=== PATIENT | female | born 1945 | race Two or more races ===

== ENCOUNTER → 2017-01-10 | Outpatient (CLI) | payer MEDICARE, MEDICAID ==
[~2017-01-10] MED LIST: AMLO5TAB2 PO; ASPI-231 PO; ATOR40TA52 PO; BENA40TA7 PO; SOTA80TA PO
== END | disposition home or self-care (01) ==
LOC: Rad HDHVI 14:33
PROVIDERS: ATTEND Internal Medicine Cardiovascular Disease
DX: I08.0 Rheumatic disorders of both mitral and aortic valves (principal); R06.02 Shortness of breath
CPT/HCPCS: 93306

== ENCOUNTER → 2017-01-14 | Outpatient (CLI) | payer MEDICARE, MEDICAID ==
[~2017-01-14] MED LIST changes: +ADENOSINE 58 MG in GIVE UN-DILUTED 0 ML IV ONE; +ADENOSINE 90 MG/30 ML INJ IV ONE
== END | disposition home or self-care (01) ==
LOC: Rad HDHVI 13:05
PROVIDERS: ATTEND Internal Medicine Cardiovascular Disease
DX: I10 Essential (primary) hypertension (principal); E78.00 Pure hypercholesterolemia, unspecified; I25.119 Atherosclerotic heart disease of native coronary artery with unspecified angina pectoris
CPT/HCPCS: 78452; 93005; 96374; 96375; A9500; J0153

== ENCOUNTER → 2017-11-18 | Outpatient (CLI) | payer MEDICARE, MEDICAID ==
[~2017-11-18] MED LIST changes: -ADENOSINE 58 MG in GIVE UN-DILUTED 0 ML IV ONE; -ADENOSINE 90 MG/30 ML INJ IV ONE; +ALPR0.254 PO; +AMLO5TAB13 PO; -AMLO5TAB2 PO; +CLOP75TA41 PO; +ISOS30TA4 PO; +NITR0.4S29 SL; +PANT40T PO; +RANO500T2 PO
== END | disposition home or self-care (01) ==
LOC: Rad HDHVI 15:34
PROVIDERS: ATTEND Internal Medicine Cardiovascular Disease
DX: I08.3 Combined rheumatic disorders of mitral, aortic and tricuspid valves (principal); I20.0 Unstable angina; R06.02 Shortness of breath
CPT/HCPCS: 93306

== ENCOUNTER → 2017-12-01 | Outpatient (CLI) | payer MEDICARE, MEDICAID ==
[2017-12-01 10:00] VITALS: BP 127/67
[2017-12-01 10:25] VITALS: BP 128/71
[2017-12-01 12:08] LABS: Basophils # (auto) 0.1 uL; Basophils % (auto) 0.9 % (0.0-2.0); Eosinophils # (auto) 0.2 uL; Eosinophils % (auto) 2.9 % (0.0-7.0); Hematocrit 38.2 % (36.0-46.0); Hemoglobin 12.6 g/dL (12.2-16.2); Lymphocytes # (auto) 2.8 uL; Mean Corpuscular Hemoglobin 30.4 pg (28.0-32.0); Monocytes # (auto) 0.4 uL; Monocytes % (auto) 6.2 % (0.0-12.0); Neutrophils # (auto) 3.5 uL; Nucleated Red Blood Cells % 0.4 %; Platelet Count (auto) 164 10^3/uL (140-450); Red Blood Cells 4.15 10^6/uL (4.0-5.20); Red Cell Distribution Width 13.3 % (11.8-14.3)
[2017-12-01 12:13] LABS: BUN/Creatinine Ratio 20.2; Calcium 10.4 mg/dL (8.5-10.1); Potassium 4.2 mmol/L (3.5-5.1)
[2017-12-01 12:14] LABS: Partial Thromboplastin Time 26.4 sec (23.78-33.04); Prothrombin Time 10.7 sec (9.27-12.13)
== END | disposition home or self-care (01) ==
LOC: Rad HDHVI 09:51
PROVIDERS: ATTEND Internal Medicine Cardiovascular Disease
DX: Z01.812 Encounter for preprocedural laboratory examination (principal); I10 Essential (primary) hypertension; D64.9 Anemia, unspecified; R79.1 Abnormal coagulation profile; I20.0 Unstable angina
CPT/HCPCS: 36415; 80048; 85025; 85610; 85730; 93005; G0463

== ENCOUNTER 2017-12-04 09:20 | Day surgery (SDC) | payer MEDICARE, MEDICAID ==
[~2017-12-04] VITALS: Ht 160 cm; Wt 69.4 kg
[2017-12-04] MEDS ORDERED: LIDOCAINE 2% (LOCAL ANESTH.) PF 5ml SDV ONE (11:06)
[2017-12-04] MEDS ORDERED: IOHEXOL 350 MG/ML 100ML IJ ONE (11:06)
[2017-12-04] MEDS ORDERED: ANGIOMAX 250 MG VIAL IV ONE (11:10)
[2017-12-04] MEDS ORDERED: SODIUM CHL 0.9% 0 ML ONE (11:11)
[2017-12-04] MEDS ORDERED: MIDAZOLAM HCL 1MG/1ML-2 ML VIAL ONE (11:11)
[2017-12-04] MEDS ORDERED: fentaNYL CITRATE 100 MCG/2 ML VL ONE (11:11)
== END 2017-12-04 14:30 | disposition home or self-care (01) ==
LOC: CATH 09:20
PROVIDERS: ATTEND Internal Medicine Cardiovascular Disease
DX: I25.119 Atherosclerotic heart disease of native coronary artery with unspecified angina pectoris (principal); Z95.5 Presence of coronary angioplasty implant and graft; R94.39 Abnormal result of other cardiovascular function study; I10 Essential (primary) hypertension; E11.9 Type 2 diabetes mellitus without complications; E78.5 Hyperlipidemia, unspecified; Z79.82 Long term (current) use of aspirin; Z79.899 Other long term (current) drug therapy
CPT/HCPCS: 93458; 99152; 99153; A6257; C1760; C1894; J1644; J2001; J2250; J3010; J7030; Q9967

== ENCOUNTER → 2018-04-21 | Outpatient (CLI) | payer MEDICARE, MEDICAID ==
[~2018-04-21] VITALS: Ht 160 cm; Wt 68.5 kg
[~2018-04-21] MED LIST changes: +ACETAMINOPHEN 500 MG TAB PO ONE; +ADENOSINE 58 MG in GIVE UN-DILUTED 0 ML IV ONE; +ADENOSINE 90 MG/30 ML INJ IV ONE
== END | disposition home or self-care (01) ==
LOC: Rad HDHVI 14:21
PROVIDERS: ATTEND Internal Medicine Cardiovascular Disease
DX: I08.3 Combined rheumatic disorders of mitral, aortic and tricuspid valves (principal); I11.0 Hypertensive heart disease with heart failure; I50.33 Acute on chronic diastolic (congestive) heart failure; I48.0 Paroxysmal atrial fibrillation; I20.0 Unstable angina; E78.00 Pure hypercholesterolemia, unspecified
CPT/HCPCS: 78452; 93005; 93306; 96374; 96375; A9500; J0153

== ENCOUNTER → 2018-09-25 | Outpatient (CLI) | payer MEDICARE, MEDICAID ==
[~2018-09-25] MED LIST changes: -ACETAMINOPHEN 500 MG TAB PO ONE; -ADENOSINE 58 MG in GIVE UN-DILUTED 0 ML IV ONE; -ADENOSINE 90 MG/30 ML INJ IV ONE; -AMLO5TAB13 PO; +AMLO5TAB15 PO; +READI-CAT 2 (BARIUM SULF)(VANILLA SMOOTHIE) 450ML ONE
== END | disposition home or self-care (01) ==
LOC: Rad HDHVI 09:17
PROVIDERS: ATTEND Internal Medicine Cardiovascular Disease
DX: I08.0 Rheumatic disorders of both mitral and aortic valves (principal); I25.10 Atherosclerotic heart disease of native coronary artery without angina pectoris; I11.0 Hypertensive heart disease with heart failure; I50.43 Acute on chronic combined systolic (congestive) and diastolic (congestive) heart failure
CPT/HCPCS: 74176; 93306

== ENCOUNTER → 2018-10-06 | Outpatient (CLI) | payer MEDICARE, MEDICAID ==
[~2018-10-06] VITALS: Ht 160 cm; Wt 66.7 kg
[~2018-10-06] MED LIST changes: +ACETAMINOPHEN 500 MG TAB PO ONE; +ADENOSINE 56 MG in GIVE UN-DILUTED 0 ML IV ONE; +ADENOSINE 90 MG/30 ML INJ IV ONE; -READI-CAT 2 (BARIUM SULF)(VANILLA SMOOTHIE) 450ML ONE
== END | disposition home or self-care (01) ==
LOC: Rad HDHVI 13:17
PROVIDERS: ATTEND Internal Medicine Cardiovascular Disease
DX: R07.9 Chest pain, unspecified (principal); I10 Essential (primary) hypertension; E78.00 Pure hypercholesterolemia, unspecified; R53.83 Other fatigue
CPT/HCPCS: 78452; 93005; 96374; 96375; A9500; J0153

== ENCOUNTER 2018-12-07 15:15 | Inpatient (IN) | payer MEDICARE, MEDICAID ==
[~2018-12-07] VITALS: Ht 157.5 cm; Wt 70.8 kg
[~2018-12-07 15:15] MED LIST changes: -ACETAMINOPHEN 500 MG TAB PO ONE; -ADENOSINE 56 MG in GIVE UN-DILUTED 0 ML IV ONE; -ADENOSINE 90 MG/30 ML INJ IV ONE
[2018-12-07 16:00] VITALS: BP 124/80
--- NOTE | 2018-12-07 16:00 | NUR ---
PATIENT ARRIVED ON FLOOR. PATIENT RESTING IN CHAIR. A&OX4. NO S/S OF DISTRESS NOTED AT THIS TIME. DENIES ANY PAIN. PATIENT ORIENTED TO [facility]. ORIENTED TO HOSPITAL ROOM INCLUDING CALL LIGHT AND BED. PATIENT UPDATED ON POC. ALL QUESTIONS ANSWERED. BED IN LOWEST LOCKED POSITION WITH CALL LIGHT WITHIN REACH. WILL CONTINUE CARE.
[2018-12-07 16:35] VITALS: BP 124/80
--- NOTE | 2018-12-07 16:45 | NUR ---
Ramona ERWIN STATED PATIENT "CLEARED FOR SURGERY".
--- NOTE | 2018-12-07 16:45 | NUR ---
SPOKE TO Ramona ERWIN. RECEIVED ORDERS. RYAN. WILL FOLLOW THROUGH AND CONTINUE CARE.
[2018-12-07] MEDS ORDERED: BENA40TA7 PO (17:17)
--- NOTE | 2018-12-07 17:20 | NUR ---
IV insertion IV access obtained, via clean sterile technique by inserting 20 gauge catheter at L HAND after 1 attempt(s). IV secured properly. No trauma to site. Patient tolerated well. NOTE:
[2018-12-07] MEDS ORDERED: ALPRAZolam 0.25 MG TAB PO PRN (18:00)
--- NOTE | 2018-12-07 19:00 | NUR ---
ENDORSED CARE TO RN REESE. PATIENT IN NO S/S OF DISTRESS AT THIS TIME.
[2018-12-07 19:33] LABS: Basophils # (auto) 0.1 uL; Basophils % (auto) 0.6 % (0.0-2.0); Eosinophils # (auto) 0.2 uL; Eosinophils % (auto) 2.1 % (0.0-7.0); Hematocrit 41.3 % (36.0-46.0); Hemoglobin 14.1 g/dL (12.2-16.2); Lymphocytes % (auto) 43.9 % (10.0-50.0); Mean Corpuscular Hemoglobin 31.5 pg (28.0-32.0); Mean Corpuscular Volume 92.6 fL (80.0-100.0); Monocytes # (auto) 0.5 uL; Monocytes % (auto) 5.5 % (0.0-12.0); Neutrophils # (auto) 4.4 uL; Neutrophils % (auto) 47.9 % (37.0-80.0); Nucleated Red Blood Cells % 0.1 %; Platelet Count (auto) 179 10^3/uL (140-450); Red Blood Cells 4.46 10^6/uL (4.0-5.20); Red Cell Distribution Width 13.8 % (11.8-14.3); White Blood Cell 9.1 10^3/uL (4.4-10.8)
--- NOTE | 2018-12-07 20:00 | NUR ---
Opening Shift Note Assumed care of patient, awake and alert. No S/S of distress/SOB or pain. Instructed on POC and to call for assist PRN, will continue to monitor for changes Q1hr and PRN.Daughter at bedside.
[2018-12-07 20:03] LABS: BUN/Creatinine Ratio 21.3; Calcium 10.7 mg/dL (8.5-10.1); Potassium 3.9 mmol/L (3.5-5.1)
[2018-12-07] MEDS: ATORVASTATIN 20 MG TAB PO SCH (21:42)
[2018-12-07 22:00] VITALS: BP 114/71
[2018-12-08 05:00] VITALS: BP 122/70
--- NOTE | 2018-12-08 07:15 | NUR ---
Report given to becky Self, patient is resting no distress.
--- NOTE | 2018-12-08 08:05 | NUR ---
OPENING SHIFT NOTE ASSUMED CARE OF PATIENT. PATIENT ALERT AND AWAKE IN BED. NO SIGNS OF SOB OR DISTRESS. INSTRUCTED OF POC AND TO CALL FOR ASSISTANCE PRN. BED IN LOWEST POSITION. SIDE RAILS UP X2. WILL CONTINUE TO MONITOR.
[2018-12-08 09:00] VITALS: BP 122/79
[2018-12-08] MEDS: amLODIPine BESYLATE 5 MG TAB PO SCH (09:59)
[2018-12-08] MEDS: ASPirin 81 mg TAB PO SCH (10:00)
[2018-12-08] MEDS: BENAZEPRIL HCL 10 MG TAB PO SCH (10:00)
[2018-12-08 10:09] LABS: INR 1.07 (0.9-1.15); Partial Thromboplastin Time 27.3 sec (23.64-32.05)
[2018-12-08 10:13] LABS: Bilirubin, Total 1.2 mg/dL (0.2-1.0)
[2018-12-08 13:00] VITALS: BP 125/70
--- NOTE | 2018-12-08 15:57 | NUR ---
PAGED DR WILLIS REGARDING CONSULT. AWAITING CALLBACK.
[2018-12-08] MEDS: AMIODARONE HCL 200 MG TAB PO SCH (16:36)
[2018-12-08] MEDS: ISOSORBIDE MONONITRATE ER 60 MG TAB PO SCH (16:37)
[2018-12-08 17:00] VITALS: BP 118/89
--- NOTE | 2018-12-08 20:00 | NUR ---
Opening Shift Note Assumed care of patient, awake and alert. No S/S of distress/SOB or pain. Instructed on POC and to call for assist PRN, will continue to monitor for changes Q1hr and PRN.Advised no food or drink after midnight.
[2018-12-08] MEDS: HYDROcodone-ACET 5/325MG TAB PO PRN (20:54)
[2018-12-08] MEDS: ATORVASTATIN 20 MG TAB PO SCH (21:24)
[2018-12-08 21:49] VITALS: BP 132/78
[2018-12-09 04:11] LABS: Urine Amorphous Crystal FEW /hpf (None Seen); Urine Bacteria FEW /hpf (None Seen); Urine Blood Negative /uL (Negative); Urine Hyaline Cast MANY /lpf (0 - 2); Urine Mucus MANY (None Seen); Urine Specific Gravity 1.031 (1.001-1.035); Urine WBC 12 /hpf (0 - 5)
[2018-12-09 05:57] VITALS: BP 104/69
--- NOTE | 2018-12-09 06:45 | NUR ---
Send the patient to pre-op room and gave report to Shane Mcguire and told the patient has no consent yet, no order for surgery and still to be seen by Dr. Juan, and patient want to talk to her daughter before she goes under surgery .
[2018-12-09] MEDS ORDERED: ceFAZolin 1GM/50ML 50 ML IV ONE (07:04)
--- NOTE | 2018-12-09 07:20 | NUR ---
Report given to Shane Shin, patient is resting no distress.
[2018-12-09] MEDS ORDERED: SUCCINYLCHOLINE CHLORIDE 20 MG/ML 10ML VIAL IV ONE (08:20)
[2018-12-09] MEDS ORDERED: DOXAPRAM HCL 20 MG/ML 20ML VIAL INJ IV ONE (08:20)
[2018-12-09] MEDS ORDERED: ROCURONIUM 10MG/ML 10ML VIAL IV ONE (08:29)
[2018-12-09] MEDS ORDERED: NEOSTIGMINE 1 MG/ML INJ (10mg/10ML VIAL) ONE ×2 (08:29→09:58)
[2018-12-09] MEDS ORDERED: MIDAZOLAM HCL 1MG/1ML-2 ML VIAL ONE (08:29)
[2018-12-09] MEDS ORDERED: GLYCOPYRROLATE 0.2 MG/ML 1ML VIAL ONE ×2 (08:29→09:58)
[2018-12-09] MEDS ORDERED: SODIUM CHLORIDE LOCK 10 ML ONE (08:29)
[2018-12-09] MEDS ORDERED: ETOMIDATE (2MG/ML) 20ML VIAL IV ONE (08:29)
[2018-12-09] MEDS ORDERED: fentaNYL CITRATE 100 MCG/2 ML VL ONE (08:29)
[2018-12-09] MEDS ORDERED: MORPHINE SULFATE INJECTION 1 ML ONE (08:29)
[2018-12-09] MEDS ORDERED: ONDANSETRON HCL 4 MG/2 ML VIAL ONE (08:29)
[2018-12-09] MEDS: ASPirin 81 mg TAB PO SCH (10:00)
--- NOTE | 2018-12-09 11:06 | NUR ---
Nutrition Assessment Notes please see attached link for complete assessment Est. Needs BW (71 kg): 0348-3534 kcal (23-25kcal/kgBW), 71-78 gms pro (1.0-1.1 gms/kgBW). Will continue to monitor pertinent labs and reassess nutrient need prn Addendum: 12/09/18 at [address] Amended: Links added.
[2018-12-09] MEDS: AMIODARONE HCL 200 MG TAB PO SCH (11:11)
[2018-12-09] MEDS: ISOSORBIDE MONONITRATE ER 60 MG TAB PO SCH (11:12)
[2018-12-09] MEDS: BENAZEPRIL HCL 10 MG TAB PO SCH (11:12)
[2018-12-09] MEDS: amLODIPine BESYLATE 5 MG TAB PO SCH (11:13)
[2018-12-09] MEDS: HYDROcodone-ACET 5/325MG TAB PO PRN (11:23)
[2018-12-09 13:00] VITALS: BP 124/69
--- NOTE | 2018-12-09 14:07 | NUR ---
Dr. Rowe paged regarding last BM 12/03, awaiting to call back.
--- NOTE | 2018-12-09 14:26 | NUR ---
Received a call from Dr. Rowe with new orders, noted and carried it out.
[2018-12-09] MEDS: LACTULOSE 20Gm/30ML SOLN PO PRN ×2 (15:28→22:39)
[2018-12-09 16:58] VITALS: BP 111/72
--- NOTE | 2018-12-09 19:35 | NUR ---
Opening Shift Note Assumed care of patient, awake and alert. No S/S of distress/SOB or pain. Instructed on POC and to call for assist PRN, will continue to monitor for changes Q1hr and PRN.
[2018-12-09] MEDS: ATORVASTATIN 20 MG TAB PO SCH (22:39)
[2018-12-09 23:04] VITALS: BP 100/53
[2018-12-10] MEDS: HYDROcodone-ACET 5/325MG TAB PO PRN (05:24)
[2018-12-10 05:41] VITALS: BP 128/90
[2018-12-10 09:00] VITALS: BP 114/69
[2018-12-10] MEDS: ASPirin 81 mg TAB PO SCH (09:50)
[2018-12-10] MEDS: BENAZEPRIL HCL 10 MG TAB PO SCH (09:51)
[2018-12-10] MEDS: ISOSORBIDE MONONITRATE ER 60 MG TAB PO SCH (09:51)
[2018-12-10] MEDS: amLODIPine BESYLATE 5 MG TAB PO SCH (09:51)
[2018-12-10] MEDS: AMIODARONE HCL 200 MG TAB PO SCH (09:51)
[2018-12-10 13:00] VITALS: BP 112/67
[2018-12-10 14:16] VITALS: BP 112/67
--- NOTE | 2018-12-10 15:57 | NUR ---
D/C Planning Per consult for wound care, physical therapy, wound care motoring TO [facility]. Information and choice was given to Pt at bedside. Pt first choice was [facility] and Second choice was [facility]. Pt stated she will be staying with her brother Atif Ph:) in [facility]. Pt verbalize understanding d/c plan. Contacted [facility] Ph:) spoke to Marcos. Per Marcos from [facility] advised me they do not cover [place] area. Contacted [facility]:) Fax:) faxed medical records. Zena from [facility] advised me they cover [place] area and Pt has been accepted and will be seen within 48hrs upon d/c day. Provided Zena from [facility] Pt brother Atif address [address] [place] [id number]. Informed Pt at bedside of home health acceptance. Informed [facility] Momin. Addendum: 12/10/18 at 1614 by MAYCO KYES Amended: Links added.
--- NOTE | 2018-12-10 15:59 | NUR ---
Per Dandre (KEMI) patient will go home with [facility] . Patient notified.
[2018-12-10 17:00] VITALS: BP 111/55
--- NOTE | 2018-12-10 17:35 | NUR ---
Discharge instructions given as ordered. Encourage to follow up with PMD (Follow up with Dr. Juan in 7-10 DAYS Address : [address] [place] [address] Rd, , [place], [id number] [phone] Ext : [phone]. FOLLOW UP WITH DR ERWIN WITHIN 1 WEEK (CALL AND SCHEDULE APPOINTMENT) [address] [place] [address]. FOLLOW UP WITH [facility] )as instructed. All questions and concerns addressed. Patient verbalized understanding. Medication reconciliation form completed and copy given to patient. IV removed with catheter intact, pressure dressing applied. Patient taken to vehicle via wheelchair with all personal belongings, accompanied by staff and family member. No distress noted at time of departure.
== END 2018-12-10 17:35 | disposition home health service (06) | DRG 418 ==
LOC: WEST WING 15:42
PROVIDERS: ADMIT Internal Medicine Cardiovascular Disease; ATTEND Internal Medicine Cardiovascular Disease
PROC: 0FT44ZZ Resection of Gallbladder, Percutaneous Endoscopic Approach (ICD-10-PCS; principal; 2018-12-09 09:25)
DX: K80.12 Calculus of gallbladder with acute and chronic cholecystitis without obstruction (principal); D68.59 Other primary thrombophilia; I25.10 Atherosclerotic heart disease of native coronary artery without angina pectoris; I10 Essential (primary) hypertension; E78.5 Hyperlipidemia, unspecified; I48.0 Paroxysmal atrial fibrillation; Z95.5 Presence of coronary angioplasty implant and graft; F32.9 Major depressive disorder, single episode, unspecified; F41.9 Anxiety disorder, unspecified
CPT/HCPCS: 36415; 71045; 76705; 80048; 81001; 82150; 82247; 85025; 85610; 85730; 86850; 86900; 86901; 93005; G0378; J0330; J0690; J2250; J2405

== ENCOUNTER → 2019-04-28 | Outpatient (CLI) | payer MEDICARE, MEDICAID ==
[~2019-04-28] MED LIST changes: -CLOP75TA41 PO; -PANT40T PO; +READI-CAT 2 (BARIUM SULF)(VANILLA SMOOTHIE) 450ML ONE; -SOTA80TA PO
[2019-04-28 16:02] LABS: Basophils # (auto) 0.1 uL; Basophils % (auto) 0.7 % (0.0-2.0); Eosinophils # (auto) 0.1 uL; Eosinophils % (auto) 1.8 % (0.0-7.0); Hematocrit 38.2 % (36.0-46.0); Hemoglobin 12.7 g/dL (12.2-16.2); Lymphocytes % (auto) 39.7 % (10.0-50.0); Mean Corpuscular Hemoglobin 30.9 pg (28.0-32.0); Mean Corpuscular Hgb Conc. 33.3 g/dL (32.0-36.0); Monocytes # (auto) 0.5 uL; Monocytes % (auto) 5.9 % (0.0-12.0); Neutrophils # (auto) 3.9 uL; Neutrophils % (auto) 51.9 % (37.0-80.0); Nucleated Red Blood Cells % 0.1 %; Platelet Count (auto) 183 10^3/uL (140-450); Red Blood Cells 4.11 10^6/uL (4.0-5.20); Red Cell Distribution Width 13.5 % (11.8-14.3); White Blood Cell 7.6 10^3/uL (4.4-10.8)
[2019-04-28 16:17] LABS: Urine Blood Negative /uL (Negative); Urine Specific Gravity 1.019 (1.001-1.035)
[2019-04-28 16:23] LABS: Albumin 3.7 g/dL (3.4-5.0); Calcium 11.4 mg/dL (8.5-10.1); Potassium 4.1 mmol/L (3.5-5.1)
[2019-04-28 16:27] LABS: Bilirubin, Direct 0.1 mg/dL (0-0.2); Bilirubin, Total 0.5 mg/dL (0.2-1.0); Total Protein 7.1 g/dL (6.4-8.2)
[2019-04-28 16:50] LABS: BUN/Creatinine Ratio 18.9
== END | disposition home or self-care (01) ==
LOC: Rad HDHVI 14:49
PROVIDERS: ATTEND Internal Medicine Cardiovascular Disease
DX: E03.9 Hypothyroidism, unspecified (principal); N39.0 Urinary tract infection, site not specified; R10.9 Unspecified abdominal pain; K59.00 Constipation, unspecified; Z79.899 Other long term (current) drug therapy
CPT/HCPCS: 36415; 80048; 80061; 80076; 81003; 82306; 83036; 84443; 85025; 87086

== ENCOUNTER → 2019-12-31 | Outpatient (CLI) | payer MEDICARE, MEDICAID ==
[~2019-12-31] MED LIST changes: +AMIO400T7 PO; -READI-CAT 2 (BARIUM SULF)(VANILLA SMOOTHIE) 450ML ONE; +RIVA20TA PO; +TRAM50TA2 PO
--- NOTE | 2019-12-31 11:07 | NUR ---
PT. TO CLINIC FOR COMPLETION OF PRE-OP DIAGNOSTICS FOR LHC ON 01/05 AT [facility]. LOUANN BALLARD. JASMIAN WITH PT. FOR SUPPORT. PT. WITH NO C/O. LABS AND CXR HAVE BEEN COMPLETED.
--- NOTE | 2019-12-31 11:12 | NUR ---
PRE OP EKG DONE SHOWING CHRONIC A-FIB WITH CONTROLLED VENT. RESPONSE AT 97
--- NOTE | 2019-12-31 11:22 | NUR ---
Pre-Op Discharge Summary: See e-MAR for any medications given for this visit. Pre-op orders received and carried out per MD of EKG, LABS and chest xrays. DISCHARGED WITH FAMILY IN NO ACUTED DISTRESS. VSS. PT. INSTRUCTED TO GO TO [facility] AT THIS TIME FOR FOLLOW UP PROCEDURES.
[2019-12-31 11:41] LABS: Hematocrit 41.8 % (36.0-46.0); Hemoglobin 13.9 g/dL (12.2-16.2); Mean Corpuscular Hemoglobin 31.5 pg (28.0-32.0); Mean Corpuscular Hgb Conc. 33.2 g/dL (32.0-36.0); Mean Corpuscular Volume 94.9 fL (80.0-100.0); Platelet Count (auto) 266 10^3/uL (140-450); Red Blood Cells 4.41 10^6/uL (4.0-5.20); Red Cell Distribution Width 14.2 % (11.8-14.3)
[2019-12-31 11:49] LABS: White Blood Cell 35.3 10^3/uL (4.4-10.8)
--- NOTE | 2019-12-31 11:50 | NUR ---
THIS RN RECEIVED CALL FROM LAB WITH CRITICAL ELEVATED WBC OF 35.3. PT. SEEMED COMPLETLEY ASYMPTOMATIC WHILE IN CLINIC , AFIBRILE AT 97.5. CALL MADE TO LAUNDRY TECH WITH RESULTS. PT. HAS NOT ARRIVED YET. PAGE TO DR. OROSCO FOR FOLLOW UP ORDERS DONE AT THIS TIME.
[2019-12-31 11:51] LABS: Band Neutrophils % (manual) 0; Basophils % (manual) 0 (0.0-2.0); Blast Cells 0; Eosinophils % (manual) 0 (0-7); Metamyelocytes % 0; Myelocytes % 0; Promyelocytes % 0; Reactive Lymphocytes 0
[2019-12-31 12:01] LABS: INR 0.97 (0.9-1.15); Partial Thromboplastin Time 22.3 sec (23.0-31.2)
[2019-12-31 12:03] LABS: BUN/Creatinine Ratio 34.6; Calcium 10.4 mg/dL (8.5-10.1); Potassium 4.5 mmol/L (3.5-5.1)
--- NOTE | 2019-12-31 12:15 | NUR ---
CALL AND PAGE TO DR. OROSCO REGARDING LAB RESULTS. CALL TO PT'S GRANDSON. VM NOT SET UP.
--- NOTE | 2019-12-31 12:35 | NUR ---
CALL TO [facility] SUPERVISOR AND SPOKE TO JACQUIE. GAVE PT. STATUS UPON PRESENTATION. PER JACQUIE, DR. OROSCO IS IN PROCEDURE. PT. HAD JUST ARRIVED. ORDERS GIVEN TO REPEAT CBC TO JACQUIE, AFTER CHART REVIEW AND MD ORDER.
[2019-12-31 13:11] LABS: Lymphocytes % (manual) 34 (10.0-50.0); Monocytes % (manual) 5 (0-12)
--- NOTE | 2019-12-31 14:00 | NUR ---
JODIERN FROM [facility] CALLED BACK WITH RESULTS OF SECOND CBC, WITH WBC OF 31.2. PT. REMAINS ASYMPTOMATIC. COVID WAS RUN TODAY. PT. WILL REMAIN ON SCHEDULE UNTIL WE HEAR BACK FROM DR. ERWIN. THIS RN WILL NOTIFY DR. ERWIN AT FIRST AVAILABILITY AND PT. HAS THIS RN'S NUMBER.
== END | disposition home or self-care (01) ==
LOC: Rad HDHVI 10:20
PROVIDERS: ATTEND Internal Medicine Cardiovascular Disease
DX: Z01.812 Encounter for preprocedural laboratory examination (principal); I70.0 Atherosclerosis of aorta; M46.04 Spinal enthesopathy, thoracic region; I50.43 Acute on chronic combined systolic (congestive) and diastolic (congestive) heart failure
CPT/HCPCS: 36415; 71046; 80048; 85007; 85027; 85610; 85730; 93005; G0463

== ENCOUNTER → 2020-01-03 | Outpatient (CLI) | payer MEDICARE, MEDICAID ==
[~2020-01-03] MED LIST changes: +GASTROGRAFIN 120 ML SOL ONE; +IOHEXOL 350 MG/ML 100ML IJ ONE; +ONDANSETRON HCL 4 MG/2 ML VIAL IV ONE; +ONDANSETRON HCL 4 MG/2 ML VIAL ONE; +SODIUM CHLORIDE 0.9% 500 ML IV SCH; +levoFLOXacin 500MG 100 ML IV ONE
[2020-01-03 11:19] LABS: Basophils # (auto) 0 10 ^3/uL (0-0.2); Basophils % (auto) 0.2 % (0.0-2.0); Eosinophils # (auto) 0.1 10 ^3/uL (0-0.8); Eosinophils % (auto) 0.4 % (0.0-7.0); Hemoglobin 14.5 g/dL (12.2-16.2); Lymphocytes # (auto) 7.8 10 ^3/uL (0.4-5.4); Lymphocytes % (auto) 50.9 % (10.0-50.0); Mean Corpuscular Hemoglobin 32.5 pg (28.0-32.0); Mean Corpuscular Hgb Conc. 34.5 g/dL (32.0-36.0); Mean Corpuscular Volume 94.3 fL (80.0-100.0); Monocytes # (auto) 0.6 10 ^3/uL (0-1.3); Monocytes % (auto) 4.2 % (0.0-12.0); Neutrophils # (auto) 6.8 10 ^3/uL (1.6-8.6); Neutrophils % (auto) 44.3 % (37.0-80.0); Nucleated Red Blood Cells % 0.1 %; Platelet Count (auto) 232 10^3/uL (140-450); Red Blood Cells 4.46 10^6/uL (4.0-5.20); Red Cell Distribution Width 14.4 % (11.8-14.3); White Blood Cell 15.3 10^3/uL (4.4-10.8)
[2020-01-03 11:32] LABS: Albumin 3.4 g/dL (3.4-5.0); Calcium 10.8 mg/dL (8.5-10.1); Potassium 4.5 mmol/L (3.5-5.1)
[2020-01-03 11:36] LABS: BUN/Creatinine Ratio 21.8; Bilirubin, Total 1.2 mg/dL (0.2-1.0); Total Protein 6.2 g/dL (6.4-8.2)
[2020-01-03 12:15] LABS: Urine Blood Negative /uL (Negative); Urine Specific Gravity 1.015 (1.001-1.035)
[2020-01-03 16:15] VITALS: BP 109/59
== END | disposition home or self-care (01) ==
LOC: CHF HDHVI 10:07
PROVIDERS: ATTEND Internal Medicine Cardiovascular Disease
DX: R10.84 Generalized abdominal pain (principal); R11.0 Nausea; R30.0 Dysuria; I25.10 Atherosclerotic heart disease of native coronary artery without angina pectoris; I11.0 Hypertensive heart disease with heart failure; I50.42 Chronic combined systolic (congestive) and diastolic (congestive) heart failure; I48.91 Unspecified atrial fibrillation; F41.9 Anxiety disorder, unspecified; E78.5 Hyperlipidemia, unspecified; F32.9 Major depressive disorder, single episode, unspecified; Z79.899 Other long term (current) drug therapy
CPT/HCPCS: 36415; 74177; 80053; 81003; 83735; 85025; 87086; 87088; 87186; 96361; 96365; 96375; G0463; J1956; J2405; J7040; Q9963; Q9967; 96360; 96366; 96374

== ENCOUNTER 2020-01-06 07:31 | Day surgery (SDC) | payer MEDICARE, MEDICAID ==
[2019-12-31 13:31] LABS: Red Cell Distribution Width 14.4 % (11.8-14.3)
[2019-12-31 13:34] LABS: Hematocrit 39.7 % (36.0-46.0); Hemoglobin 13.5 g/dL (12.2-16.2); Mean Corpuscular Hemoglobin 31.8 pg (28.0-32.0); Mean Corpuscular Hgb Conc. 33.9 g/dL (32.0-36.0); Mean Corpuscular Volume 93.9 fL (80.0-100.0); Platelet Count (auto) 242 10^3/uL (140-450); Red Blood Cells 4.23 10^6/uL (4.0-5.20)
[2019-12-31 13:41] LABS: White Blood Cell 31.2 10^3/uL (4.4-10.8)
[2019-12-31 13:42] LABS: Band Neutrophils % (manual) 0; Basophils % (manual) 0 (0.0-2.0); Blast Cells 0; Eosinophils % (manual) 0 (0-7); Metamyelocytes % 0; Myelocytes % 0; Promyelocytes % 0; Reactive Lymphocytes 0
[2019-12-31 14:09] LABS: Lymphocytes % (manual) 50 (10.0-50.0); Monocytes % (manual) 2 (0-12)
[~2020-01-06] VITALS: Ht 162.6 cm; Wt 65.8 kg
[~2020-01-06 07:31] MED LIST changes: -GASTROGRAFIN 120 ML SOL ONE; -IOHEXOL 350 MG/ML 100ML IJ ONE; -ONDANSETRON HCL 4 MG/2 ML VIAL IV ONE; -ONDANSETRON HCL 4 MG/2 ML VIAL ONE; -SODIUM CHLORIDE 0.9% 500 ML IV SCH; -levoFLOXacin 500MG 100 ML IV ONE
[2020-01-06] MEDS ORDERED: ACETAMINOPHEN 325 MG TAB PO ONE ×2 (08:37→09:00)
[2020-01-06] MEDS ORDERED: ONDANSETRON HCL 4 MG/2 ML VIAL ONE (09:00)
[2020-01-06] MEDS ORDERED: LIDOCAINE 2%HCL (LOCAL ANESTH.) INJ 20ML MDV ONE (09:01)
[2020-01-06] MEDS ORDERED: ANGIOMAX 250 MG VIAL IV ONE (09:06)
[2020-01-06] MEDS ORDERED: SODIUM CHL 0.9% 0 ML ONE (09:07)
[2020-01-06] MEDS ORDERED: MIDAZOLAM HCL 1MG/1ML-2 ML VIAL ONE (09:07)
[2020-01-06] MEDS ORDERED: fentaNYL CITRATE 100 MCG/2 ML VL ONE (09:07)
[2020-01-06] MEDS ORDERED: IOHEXOL 350 MG/ML 100ML IJ ONE (09:16)
== END 2020-01-06 12:19 | disposition home or self-care (01) ==
LOC: CATH 07:31
PROVIDERS: ATTEND Internal Medicine Cardiovascular Disease
DX: R07.89 Other chest pain (principal); I25.118 Atherosclerotic heart disease of native coronary artery with other forms of angina pectoris; I48.91 Unspecified atrial fibrillation; I10 Essential (primary) hypertension; M51.26 Other intervertebral disc displacement, lumbar region; E78.5 Hyperlipidemia, unspecified; F32.9 Major depressive disorder, single episode, unspecified; F41.9 Anxiety disorder, unspecified; Z20.828 Contact with and (suspected) exposure to other viral communicable diseases; Z98.890 Other specified postprocedural states; Z79.899 Other long term (current) drug therapy
CPT/HCPCS: 36415; 85007; 85027; 93458; 93571; C1760; C1769; C1894; J1644; J2250; J2405; J3010; J7030; Q9967; U0003; 99152; 99153

== ENCOUNTER → 2020-09-13 | Outpatient (CLI) | payer MEDICARE, MEDICAID ==
[~2020-09-13] MED LIST changes: +AMLO-489 PO; -AMLO5TAB15 PO; -BENA40TA7 PO; +BENA40TA8 PO; +ISOS1TAB28 PO; -ISOS30TA4 PO
[2020-09-13 15:33] LABS: Urine Blood Negative /uL (Negative); Urine Specific Gravity 1.007 (1.001-1.035)
[2020-09-13 15:34] LABS: Basophils # (auto) 0 10 ^3/uL (0-0.2); Basophils % (auto) 0.4 % (0.0-2.0); Eosinophils # (auto) 0.1 10 ^3/uL (0-0.8); Eosinophils % (auto) 1.1 % (0.0-7.0); Hematocrit 42.5 % (36.0-46.0); Hemoglobin 14.3 g/dL (12.2-16.2); Lymphocytes # (auto) 4.3 10 ^3/uL (0.4-5.4); Lymphocytes % (auto) 41.9 % (10.0-50.0); Mean Corpuscular Hemoglobin 30.5 pg (28.0-32.0); Mean Corpuscular Hgb Conc. 33.7 g/dL (32.0-36.0); Mean Corpuscular Volume 90.6 fL (80.0-100.0); Monocytes # (auto) 0.6 10 ^3/uL (0-1.3); Monocytes % (auto) 5.5 % (0.0-12.0); Neutrophils # (auto) 5.3 10 ^3/uL (1.6-8.6); Neutrophils % (auto) 51.1 % (37.0-80.0); Nucleated Red Blood Cells % 0.1 %; Red Blood Cells 4.69 10^6/uL (4.0-5.20); Red Cell Distribution Width 14.7 % (11.8-14.3); White Blood Cell 10.4 10^3/uL (4.4-10.8)
[2020-09-13 15:45] LABS: Potassium 3.8 mmol/L (3.5-5.1)
[2020-09-13 15:58] LABS: Albumin 4.3 g/dL (3.4-5.0); BUN/Creatinine Ratio 17.1; Bilirubin, Direct 0.2 mg/dL (0-0.2); Bilirubin, Total 0.8 mg/dL (0.2-1.0); Calcium 11.5 mg/dL (8.5-10.1)
== END | disposition home or self-care (01) ==
LOC: Rad HDHVI 13:22
PROVIDERS: ATTEND Internal Medicine Cardiovascular Disease
DX: D51.3 Other dietary vitamin B12 deficiency anemia (principal); I10 Essential (primary) hypertension; E11.9 Type 2 diabetes mellitus without complications; E55.9 Vitamin D deficiency, unspecified; D64.9 Anemia, unspecified; R00.2 Palpitations; R53.1 Weakness; R30.0 Dysuria; R07.89 Other chest pain
CPT/HCPCS: 36415; 80048; 80061; 80076; 81003; 82306; 83036; 84443; 85025; 93306

== ENCOUNTER → 2021-09-12 | Outpatient (CLI) | payer MEDICARE, MEDICAID ==
[~2021-09-12] MED LIST changes: -ASPI-231 PO; +ASPI1TAB20 PO
== END | disposition home or self-care (01) ==
LOC: Rad HDHVI 09:06
PROVIDERS: ATTEND Internal Medicine Cardiovascular Disease
DX: I08.8 Other rheumatic multiple valve diseases (principal); R00.2 Palpitations; R06.02 Shortness of breath
CPT/HCPCS: 93306

== ENCOUNTER → 2022-01-16 | Outpatient (CLI) | payer MEDICARE, MEDICAID ==
[2022-01-16 16:07] LABS: Urine Blood Negative /uL (Negative); Urine Specific Gravity 1.018 (1.001-1.035)
[2022-01-16 16:10] LABS: Hematocrit 40.5 % (36.0-46.0); Hemoglobin 13.2 g/dL (12.2-16.2); Mean Corpuscular Hemoglobin 30.5 pg (28.0-32.0); Mean Corpuscular Hgb Conc. 32.6 g/dL (32.0-36.0); Mean Corpuscular Volume 93.6 fL (80.0-100.0); Red Blood Cells 4.33 10^6/uL (4.0-5.20); Red Cell Distribution Width 15.4 % (11.8-14.3); White Blood Cell 9.5 10^3/uL (4.4-10.8)
[2022-01-16 16:12] LABS: Band Neutrophils % (manual) 0; Basophils % (manual) 0 (0.0-2.0); Blast Cells 0; Eosinophils % (manual) 0 (0-7); Metamyelocytes % 0; Myelocytes % 0; Promyelocytes % 0
[2022-01-16 16:46] LABS: Free T4 (Free Thyroxine) 1.01 ng/dL (0.89-1.76)
[2022-01-16 17:05] LABS: Albumin 4.1 g/dL (3.4-5.0); BUN/Creatinine Ratio 18.1; Calcium 11.6 mg/dL (8.5-10.1); Potassium 4.6 mmol/L (3.5-5.1); Total Protein 6.9 g/dL (6.4-8.2)
[2022-01-16 17:07] LABS: Bilirubin, Total 0.6 mg/dL (0.2-1.0)
[2022-01-16 19:23] LABS: Lymphocytes % (manual) 54 (10.0-50.0); Monocytes % (manual) 9 (0-12); Reactive Lymphocytes 2
== END | disposition home or self-care (01) ==
LOC: CHF HDHVI 12:33
PROVIDERS: ATTEND Internal Medicine Cardiovascular Disease
DX: I10 Essential (primary) hypertension (principal)
CPT/HCPCS: 36415; 80053; 80061; 81003; 82607; 83036; 84439; 84443; 85007; 85027

== ENCOUNTER → 2022-02-04 | Outpatient (CLI) | payer MEDICARE, MEDICAID ==
[~2022-02-04] VITALS: Ht 160 cm; Wt 61.2 kg
[~2022-02-04] MED LIST changes: +ADENOSINE 51 MG in GIVE UN-DILUTED 0 ML IV ONE; +ADENOSINE 90 MG/30 ML INJ IV ONE
== END | disposition home or self-care (01) ==
LOC: Rad HDHVI 09:22
PROVIDERS: ATTEND Internal Medicine Cardiovascular Disease
DX: I44.4 Left anterior fascicular block (principal); R94.31 Abnormal electrocardiogram [ECG] [EKG]; I10 Essential (primary) hypertension; E78.5 Hyperlipidemia, unspecified; E11.9 Type 2 diabetes mellitus without complications; R06.02 Shortness of breath; I25.10 Atherosclerotic heart disease of native coronary artery without angina pectoris; I48.0 Paroxysmal atrial fibrillation; R42 Dizziness and giddiness; I48.91 Unspecified atrial fibrillation; Z79.82 Long term (current) use of aspirin; Z79.899 Other long term (current) drug therapy
CPT/HCPCS: 78452; 93005; 96374; 96375; A9500; J0153

== ENCOUNTER → 2022-10-28 | Outpatient (CLI) | payer MEDICARE, MEDICAID ==
[~2022-10-28] MED LIST changes: -ADENOSINE 51 MG in GIVE UN-DILUTED 0 ML IV ONE; -ADENOSINE 90 MG/30 ML INJ IV ONE; -AMLO-489 PO; +AMLO1TAB22 PO; +BENA40TA70 PO; -BENA40TA8 PO
== END | disposition home or self-care (01) ==
LOC: Rad HDHVI 14:56
PROVIDERS: ATTEND Internal Medicine Cardiovascular Disease
DX: I08.0 Rheumatic disorders of both mitral and aortic valves (principal); R07.89 Other chest pain; R00.2 Palpitations
CPT/HCPCS: 93306

== ENCOUNTER → 2022-10-30 | Outpatient (CLI) | payer MEDICARE, MEDICAID ==
[~2022-10-30] VITALS: Ht 160 cm; Wt 64.9 kg
[~2022-10-30] MED LIST changes: +ADENOSINE 54 MG in GIVE UN-DILUTED 0 ML IV ONE; +ADENOSINE 90 MG/30 ML INJ IV ONE
== END | disposition home or self-care (01) ==
LOC: HDHVI->DVH 12:49
PROVIDERS: ATTEND Internal Medicine Cardiovascular Disease
DX: I25.10 Atherosclerotic heart disease of native coronary artery without angina pectoris (principal); I25.5 Ischemic cardiomyopathy; R07.89 Other chest pain; R00.2 Palpitations; I11.0 Hypertensive heart disease with heart failure; I50.43 Acute on chronic combined systolic (congestive) and diastolic (congestive) heart failure; E78.00 Pure hypercholesterolemia, unspecified; Z79.899 Other long term (current) drug therapy
CPT/HCPCS: 78452; 93005; 96374; 96375; A9500; J0153

== ENCOUNTER → 2023-12-16 | Outpatient (CLI) | payer MEDICARE, MEDICAID ==
[~2023-12-16] MED LIST changes: -ADENOSINE 54 MG in GIVE UN-DILUTED 0 ML IV ONE; -ADENOSINE 90 MG/30 ML INJ IV ONE; -BENA40TA70 PO; +BENA40TA71 PO; +LEVO25TA2 PO; +LINA1CAP2 PO; +MEGE20TA3 PO; +SACU1TAB7 PO; +VERI5TAB PO
[2023-12-16 12:25] VITALS: BP 178/74; PULSE 66; RESP 16; O2SAT 96
[2023-12-16 12:44] VITALS: BP 140/63; PULSE 58; RESP 16; O2SAT 96
== END | disposition home or self-care (01) ==
LOC: Rad HDHVI 12:05
PROVIDERS: ATTEND Internal Medicine Cardiovascular Disease
DX: Z01.818 Encounter for other preprocedural examination (principal); I70.0 Atherosclerosis of aorta
CPT/HCPCS: 71046; G0463

== ENCOUNTER 2023-12-18 10:06 | Day surgery (SDC) | payer MEDICARE, MEDICAID ==
[2023-12-16 14:57] LABS: Basophils # (auto) 0 10 ^3/uL (0-0.2); Basophils % (auto) 0.5 % (0.0-2.0); Eosinophils # (auto) 0.1 10 ^3/uL (0-0.8); Eosinophils % (auto) 1.5 % (0.0-7.0); Hematocrit 38.9 % (36.0-46.0); Hemoglobin 13.2 g/dL (12.2-16.2); Lymphocytes # (auto) 4.2 10 ^3/uL (0.4-5.4); Lymphocytes % (auto) 46.3 % (10.0-50.0); Mean Corpuscular Hemoglobin 32.7 pg (28.0-32.0); Mean Corpuscular Volume 96.1 fL (80.0-100.0); Monocytes # (auto) 0.6 10 ^3/uL (0-1.3); Monocytes % (auto) 6.4 % (0.0-12.0); Neutrophils # (auto) 4.1 10 ^3/uL (1.6-8.6); Neutrophils % (auto) 45.3 % (37.0-80.0); Nucleated Red Blood Cells % 0.1 %; Platelet Count (auto) 153 10^3/uL (140-450); Red Blood Cells 4.04 10^6/uL (4.0-5.20); Red Cell Distribution Width 13.9 % (11.8-14.3)
[2023-12-16 15:14] LABS: INR 1.21 (0.9-1.15); Partial Thromboplastin Time 27.2 SEC (24.5-34.5); Prothrombin Time 12.6 sec (9.3-11.8)
[2023-12-16 15:20] LABS: Chloride 109 mmol/L (98-107); Sodium 140 mmol/L (136-145)
[2023-12-16 15:21] LABS: Anion Gap 4 (5-15); Calcium 11.7 mg/dL (8.7-10.4); Carbon Dioxide 27 mmol/L (20-31)
[2023-12-16 15:26] LABS: BUN/Creatinine Ratio 13.2 (10.0-20.0); Blood Urea Nitrogen 15 mg/dL (9-23); Glucose 99 mg/dL (74-106)
[~2023-12-18] VITALS: Ht 160 cm; Wt 64.0 kg
[2023-12-18] VITALS (9 sets, daily range): BP systolic 124–148; BP diastolic 64–73; PULSE 67–73; RESP 11–16; TEMP 97.8; O2SAT 98–100
[~2023-12-18 10:06] MED LIST changes: -AMLO1TAB22 PO; -ASPI1TAB20 PO; -BENA40TA71 PO; -RANO500T2 PO
[2023-12-18] MEDS ORDERED: LIDOCAINE 2%HCL (LOCAL ANESTH.) INJ 20ML MDV ONE (12:04)
[2023-12-18] MEDS ORDERED: SODIUM CHL 0.9% 50 ML ONE (12:04)
[2023-12-18] MEDS ORDERED: MIDAZOLAM HCL 2MG/2ML 2ml VIAL (1mg/ml) ONE (12:04)
[2023-12-18] MEDS ORDERED: ANGIOMAX 250 MG VIAL IV ONE (12:04)
[2023-12-18] MEDS ORDERED: fentaNYL CITRATE 100 MCG/2 ML VL ONE (12:04)
== END 2023-12-18 14:43 | disposition home or self-care (01) ==
LOC: CATH 10:06
PROVIDERS: ATTEND Internal Medicine Cardiovascular Disease
DX: R06.02 Shortness of breath (principal); I25.10 Atherosclerotic heart disease of native coronary artery without angina pectoris; I48.0 Paroxysmal atrial fibrillation; I11.0 Hypertensive heart disease with heart failure; I50.9 Heart failure, unspecified; E78.5 Hyperlipidemia, unspecified; F32.A Depression, unspecified; F41.9 Anxiety disorder, unspecified; Z95.5 Presence of coronary angioplasty implant and graft; Z79.899 Other long term (current) drug therapy
CPT/HCPCS: 36415; 80048; 85025; 85610; 85730; 93458; C1760; C1894; J0583; J1644; J2250; J3010; Q9967; 99152

== ENCOUNTER 2024-09-15 12:00 | Outpatient (CLI) | payer MEDICARE, MEDICAID ==
[2024-09-15 12:45] VITALS: BP 159/67; PULSE 56; RESP 18; O2SAT 98
[2024-09-15 12:56] VITALS: BP 162/64; PULSE 56; RESP 18; O2SAT 98
[2024-09-15] MEDS ORDERED: IOHEXOL 350 MG/ML 100ML IJ ONE (13:32)
--- NOTE | 2024-09-15 20:50 | DVH ---
Exam: CT CT ABD PELVIS W CON-ORAL IV History: WEIGHT LOSS Comparison Study: CT ABD PELVIS W CONTRAST on DOS: 01/03/20 TECHNIQUE: Multidetector CT of the abdomen was performed from lung bases to pubic symphysis. Imaging was performed without IV contrast. Axial, coronal and sagittal multiplanar reformats were obtained fr om the axial data set by the technologist. Radiation Dose Information: CT Dose: CTDI volume is 6.78 mGy. Dose-length product is 318.6 mGy*cm Omnipaque: 100 mL. FINDINGS: Evaluation of solid organs is limited due to lack of intravenous contrast use. Findings: Lung Bases: No acute or significant lung base finding. Normal heart size. No pleural or pericardial effusion. Liver: The liver is normal in size. No focal lesions. Gallbladder and Biliary Tree: Gallbladder has been surgically removed. Spleen: Unremarkable Pancreas: The pancreas is grossly normal in appearance. Adrenal Glands: Unremarkable Kidneys: Kidneys are grossly normal without calculi or hydronephrosis. Bladder: Grossly unremarkable for degree of distention. Bowel: The stomach is grossly normal in appearance. Small bowel and colon are normal in caliber and d istribution. The appendix is not visualized; however, no secondary findings of acute appendicitis id entified. Ascites: Absent Lymphadenopathy: No mesenteric, retroperitoneal or periportal lymphadenopathy. Abdominal Wall and Mesentery: Unremarkable. Vasculature: The visualized abdominal aorta is normal in size and caliber. Evaluation of abdominal a nd pelvic vessels is limited due to lack of intravenous contrast. Pelvic Organs: Unremarkable Musculoskeletal: No aggressive focal bony lesions, acute fractures or dislocation. Bony spondylosis a nd degenerative disc changes slight 3-5 mm anterior spondylolisthesis L4 over L5. Soft tissues: Unremarkable IMPRESSION: 1. Gallbladder has been surgically removed 2. No nephrolithiasis or hydronephrosis 3. Bony spondylosis and degenerative disc changes. 4. 3-5 mm anterior spondylolisthesis at L4-5 Radiation optimization: All CT scans at this facility use at least one of these dose optimization ruchi hniques: automated exposure control mA and/or kV adjustment per patient size (includes targeted exam s where dose is matched to clinical indication) or iterative reconstruction.
== END 2024-09-15 17:00 | disposition home or self-care (01) ==
LOC: Rad HDHVI 12:00
PROVIDERS: ATTEND Internal Medicine Cardiovascular Disease
DX: I08.3 Combined rheumatic disorders of mitral, aortic and tricuspid valves (principal); R64 Cachexia; M47.816 Spondylosis without myelopathy or radiculopathy, lumbar region; M43.16 Spondylolisthesis, lumbar region; Z90.49 Acquired absence of other specified parts of digestive tract
CPT/HCPCS: 74177; 93306; G0463; Q9967